=== PATIENT | male | born 1980 | race African-American/Black ===

== ENCOUNTER 2016-11-08 18:15 | Emergency (ER) | payer OTHER ==
[2016-11-08 18:33] VITALS: BP 142/88; PULSE 72; TEMP 98.1; BMI 32.5
[2016-11-08] MEDS ORDERED: predniSONE 20 MG TABLET (UD) PO ONE (18:37)
[2016-11-08] MEDS ORDERED: ALBUTEROL SO4 0.083% IH SOL 2.5 MG/3 ML VIAL.NEB. NEB ONE (18:37)
[2016-11-08] MEDS ORDERED: IPRATROPIUM BR 0.02% 0.5 MG/2.5 ML VIAL.NEB. NEB ONE (18:37)
--- NOTE | 2016-11-08 18:43 | PDOC ---
History of Present Illness - History of Present Illness Initial Comments: 11/08/16 19:35 The patient is a 36 year old male with history of asthma brought in by EMS for dull achy midsternal chest pain that began around noon today. He states he had been feeling in his usual state of health until noon today when he was eating lunch around the onset of his pain. He went home and rested with improvement of his pain. His became concerned and activated EMS. By the time EMS arrived his chest pain had resolved. The patient was noted to be hypertensive to approximately 170/110 by EMS and was given nitroglycerin for his blood pressure prior to ED arrival. The patient denies nausea, vomiting, or diaphoresis. He denies fever, chills, or recent illness. His states he has been using his Ventolin/Singulair more frequently lately but has continued to be wheezy at night. He states he recently ran out of his asthma medication. <Oliva Lorenzana - Last Filed: 11/08/16 21:39> - General History Source: Patient, Spouse Exam Limitations: No Limitations <Idris Whitaker - Last Filed: 11/08/16 23:53> - General Chief Complaint: Chest Pain Stated Complaint: CHEST PAIN Time Seen by Provider: 11/08/16 18:27 Past History <Oliva Lorenzana - Last Filed: 11/08/16 21:39> - Past Medical History Asthma: Yes - Psycho/Social/Smoking Cessation Hx Anxiety: No Suicidal Ideation: No Smoking History: Never smoked Have you smoked in the past 12 months: No Information on smoking cessation initiated: No Hx Alcohol Use: No Drug/Substance Use Hx: No Substance Use Type: None <Idris Whitaker - Last Filed: 11/08/16 23:53> - Past Medical History Allergies/Adverse Reactions: Allergies Allergy/AdvReac Type Severity Reaction Status Date / Time avocado Allergy Verified 11/08/16 20:51 shellfish derived Allergy Verified 11/08/16 20:51 Home Medications: Ambulatory Orders Albuterol Sulfate Inhaler - [Ventolin HFA Inhaler -] 1 - 2 inh PO Q4H PRN #1 inhaler 11/08/16 Albuterol Sulfate Inhaler - [Ventolin HFA Inhaler -] 90 mcg IH PRN 11/08/16 Montelukast Na [Singulair -] 10 mg PO HS 11/08/16 Prednisone [Deltasone -] 60 mg PO DAILY #12 tablet 11/08/16 Review of Systems - Review of Systems Able to Perform ROS?: Yes Comments:: 11/08/16 19:41 GENERAL/CONSTITUTIONAL: No fever or chills. No weakness. HEAD, EYES, EARS, NOSE AND THROAT: No change in vision. No ear pain or discharge. No sore throat CARDIOVASCULAR: +Chest pain (now resolved) RESPIRATORY: +Increased wheezing x past few weeks. No cough, or hemoptysis. GASTROINTESTINAL: No nausea, vomiting, diarrhea or constipation. GENITOURINARY: No dysuria, frequency, or change in urination. MUSCULOSKELETAL: No joint or muscle swelling or pain. No neck or back pain. SKIN: No rash NEUROLOGIC: No headache, vertigo, loss of consciousness, or change in strength/ sensation. ENDOCRINE: No increased thirst. No abnormal weight change. HEMATOLOGIC/LYMPHATIC: No anemia, easy bleeding, or history of blood clots. ALLERGIC/IMMUNOLOGIC: No hives or skin allergy. <Oliva Lorenzana - Last Filed: 11/08/16 21:39> *Physical Exam - Vital Signs Last Vital Signs Temp Pulse Resp BP Pulse Ox 98.1 F 72 18 142/88 100 11/08/16 18:15 11/08/16 18:15 11/08/16 18:15 11/08/16 18:15 11/08/16 18:15 - Physical Exam Comments: 11/08/16 19:43 GENERAL: Awake, alert, and fully oriented, in no acute distress HEAD: No signs of trauma EYES: PERRLA, EOMI, sclera anicteric, conjunctiva clear ENT: Auricles normal inspection, hearing grossly normal, nares patent, oropharynx clear without exudates. Moist mucosa NECK: Normal ROM, supple, no lymphadenopathy, JVD, or masses LUNGS: Breath sounds equal. Mild diffuse expiratory wheezing. HEART: Regular rate and rhythm, normal S1 and S2, no murmurs, rubs or gallops ABDOMEN: Soft, nontender, normoactive bowel sounds. No guarding, no rebound. No masses EXTREMITIES: Normal range of motion, no edema. No clubbing or cyanosis. No cords, erythema, or tenderness NEUROLOGICAL: Cranial nerves II through XII grossly intact. Normal speech, normal gait SKIN: Warm, Dry, normal turgor, no rashes or lesions noted. <Oliva Lorenzana - Last Filed: 11/08/16 21:39> - Vital Signs Last Vital Signs Temp Pulse Resp BP Pulse Ox 98.1 F 72 18 142/88 100 11/08/16 18:15 11/08/16 18:15 11/08/16 18:15 11/08/16 18:15 11/08/16 18:15 <Idris Whitaker - Last Filed: 11/08/16 23:53> Heart Score/ECG Review - History History: Moderately suspicious - Electrocardiogram EKG: Normal - Age Age: </= 45 - Risk Factors Based on the list above the patient has:: No risk factors known - Troponin Troponin: </= normal limit - Score Heart Score - Total: 1 #1 ECG reviewed & interpreted by me at: 18:30 11/08/16 18:39 NSR, incomplete RBBB, no std/julieta, normal axis, normal intervals, QTC 399 msec <Idris Whitaker - Last Filed: 11/08/16 23:53> ED Treatment Course - LABORATORY CBC & Chemistry Diagram: 11/08/16 18:52 11/08/16 18:52 - ADDITIONAL ORDERS Additional order review: 11/08/16 18:52 RBC 5.45 MCV 78.9 L MCHC 32.9 RDW 14.1 MPV 7.5 Neutrophils % 49.6 Lymphocytes % 28.7 Monocytes % 12.7 H Eosinophils % 8.1 H Basophils % 0.9 <Oliva Lorenzana - Last Filed: 11/08/16 21:39> - LABORATORY CBC & Chemistry Diagram: 11/08/16 18:52 11/08/16 18:52 - RADIOLOGY Radiology Studies Ordered: Category Date Time Status CHEST X-RAY PORTABLE* [RAD] Stat Radiology 11/08/16 18:37 Ordered <Idris Whitaker - Last Filed: 11/08/16 23:53> Medical Decision Making - Medical Decision Making 11/08/16 18:39 A portion of this note was documented by scribe services under my direction. I have reviewed the details of the note, within reason, and agree with the documentation with the following case summary and management plan written by me. Patient treated in the ED. Nursing notes are reviewed and incorporated into the medical decision-making. Vital signs reviewed. Peripheral IV access obtained by the nurse, laboratory studies are drawn and sent, reviewed and interpreted by myself. Vital Signs Temp Pulse Resp BP Pulse Ox 98.1 F 72 18 142/88 100 11/08/16 18:15 11/08/16 18:15 11/08/16 18:15 11/08/16 18:15 11/08/16 18:15 36-year-old male with past medical history of asthma presents with dull chest pain today. Patient reports waking up today in his usual state of health. He was eating lunch at 12 when he noticed a dull chest sensation that lasted for several minutes. No associated short of breath, nausea, vomiting, diaphoresis. Denies radiation. Stated the pain went away on its own. Around 3:30, patient started feel the same sensation and arrived home with the pain. called 911 but the chest pain disappeared. Patient denies any family history of cardiac disease and denies smoking history. notes that lately in the last several months, the patient has been wheezing at night and wheezing during the daytime despite taking albuterol positive. Patient is ran out of his medications. We'll rule out SD. Patient does have an incomplete right bundle branch block which could be normal variant but we'll send a d-dimer. EMS had given the patient 324 mg of aspirin and one tablet of nitroglycerin. The patient no chest pain when he received the nitroglycerin so cannot tell us if symptoms improved or worsened. We'll send at least two troponins and reassess. 11/08/16 23:47 CBC, BMP 11/08/16 18:52 11/08/16 18:52 CMP Sodium 141 mmol/L (136-145) 11/08/16 18:52 Potassium 4.2 mmol/L (3.5-5.1) 11/08/16 18:52 Chloride 106 mmol/L (98-107) 11/08/16 18:52 Carbon Dioxide 29 mmol/L (21-32) 11/08/16 18:52 Anion Gap 6 (8-16) L 11/08/16 18:52 BUN 15 mg/dL (7-18) 11/08/16 18:52 Creatinine 0.9 mg/dL (0.7-1.3) 11/08/16 18:52 Creat Clearance w eGFR > 60 (>60) 11/08/16 18:52 Random Glucose 90 mg/dL (74-106) 11/08/16 18:52 Calcium 8.9 mg/dL (8.5-10.1) 11/08/16 18:52 Total Bilirubin 0.5 mg/dL (0.2-1.0) 11/08/16 18:52 AST 31 U/L (15-37) 11/08/16 18:52 ALT 40 U/L (12-78) 11/08/16 18:52 Alkaline Phosphatase 80 U/L (45-117) 11/08/16 18:52 Creatine Kinase 596 IU/L (39-308) H 11/08/16 22:22 Creatine Kinase Index 0.7 % (0.0-5.0) 11/08/16 18:52 CK-MB (CK-2) 5.171 ng/ml (0.5-3.6) H 11/08/16 18:52 CK-MB (CK-2) Rel Index Cancelled 11/08/16 18:52 Troponin I < 0.02 ng/ml (0.00-0.05) 11/08/16 22:22 Total Protein 7.5 g/dl (6.4-8.2) 11/08/16 18:52 Albumin 3.9 g/dl (3.4-5.0) 11/08/16 18:52 Two troponin negative. D-dimer negative. The patient reports feeling better after nebulizers and steroids. Perhaps the dull chest discomfort was secondary to his asthma. However, I have less suspicion that this is cardiac. We'll give referral to a PMD and a cardiology. We'll write a prescription for albuterol and prednisone. Patient agrees with plan. I discussed the physical exam findings, ancillary test results and final diagnoses with the patient. I answered all of the patient's questions. The patient was satisfied with the care received and felt comfortable with the discharge plan and treatment plan. The patient will call their primary care physician within 24 hours to arrange follow-up and will return to the Emergency Department with any new, persistant or worsening symptoms. 11/08/16 23:53 Chest xray reviewed by me, pending official radiology read. no acute findings. <Idris Whitaker - Last Filed: 11/08/16 23:53> *DC/Admit/Observation/Transfer - Attestations Scribe Attestion: 11/08/16 19:44 Documentation prepared by Oliva Lorenzana, acting as medical technologist blood bank for Idris Whitaker MD. <Oliva Lorenzana - Last Filed: 11/08/16 21:39> - Discharge Dispostion Admit: No <Idris Whitaker - Last Filed: 11/08/16 23:53> Diagnosis at time of Disposition: Atypical chest pain Asthma Qualifiers: Asthma severity: unspecified severity Asthma complication type: with acute exacerbation Qualified Code(s): J45.901 - Unspecified asthma with (acute) exacerbation - Discharge Dispostion Disposition: HOME Condition at time of disposition: Improved - Prescriptions Prescriptions: Prednisone [Deltasone -] 60 mg PO DAILY #12 tablet Albuterol Sulfate Inhaler - [Ventolin HFA Inhaler -] 1 - 2 inh PO Q4H PRN #1 inhaler PRN Reason: Wheezing - Referrals Referrals: Jordy Villagomez MD [Staff Physician] - Gabi Faust MD [Staff Physician] - Maral Bruce MD [Staff Physician] - Dread Colby MD [Staff Physician] - - Patient Instructions Printed Discharge Instructions: DI for Atypical Chest Pain, DI for Asthma -- Adult Additional Instructions: Please make an appointment with her primary care physician and cardiology. Take 2 possible albuterol every 4 hours as needed for wheezing. Please continue taking steroids. Please give a copy results to your doctors.
[2016-11-08 19:06] LABS: BASOPHIL 0.9 % (0-2.0); EOSINOPHIL 8.1 % (0-4.5); MCHC 32.9 g/dl (32.0-35.9); MEAN CELL VOLUME 78.9 fl (80-96); MEAN PLT VOLUME 7.5 fl (7.5-11.1); NEUTROPHILS 49.6 % (42.8-82.8); PLATELET COUNT 245 K/MM3 (134-434); RDW 14.1 % (11.9-15.9); WHITE BLOOD COUNT 5.5 K/mm3 (4.0-10.0)
[2016-11-08 19:19] LABS: INR 1.09 (0.82-1.09)
[2016-11-08 19:22] LABS: ACTIVATED PTT 35.7 SECONDS (26.9-34.4)
[2016-11-08 19:32] LABS: ALBUMIN 3.9 g/dl (3.4-5.0); ANION GAP 6 (8-16); BILIRUBIN,TOTAL 0.5 mg/dL (0.2-1.0); CALCIUM 8.9 mg/dL (8.5-10.1); CO2 29 mmol/L (21-32); CREATININE 0.9 mg/dL (0.7-1.3); GLUCOSE,RANDOM 90 mg/dL (74-106); SGOT/AST 31 U/L (15-37); SGPT/ALT 40 U/L (12-78); TOT PROT 7.5 g/dl (6.4-8.2)
[2016-11-08 19:35] LABS: ALK PHOS 80 U/L (45-117); TROPONIN I < 0.02 ng/ml (0.00-0.05)
[2016-11-08] MEDS ORDERED: predniSONE 20 MG TABLET (UD) ONE (20:20)
[2016-11-08 21:18] LABS: INR 1.1 (0.82-1.09); PROTHROMBIN TIME (PATIENT) 12.1 SEC (9.98-11.88)
[2016-11-08 21:21] LABS: ACTIVATED PTT 40.4 SECONDS (26.9-34.4)
[2016-11-08 23:28] LABS: TROPONIN I < 0.02 ng/ml (0.00-0.05)
--- NOTE | 2016-11-09 18:26 | EKG ---
Test Reason : Blood Pressure : / mmHG Vent. Rate : 071 BPM Atrial Rate : 071 BPM P-R Int : 170 ms QRS Dur : 106 ms QT Int : 368 ms P-R-T Axes : 060 000 045 degrees QTc Int : 399 ms NORMAL SINUS RHYTHM INCOMPLETE RIGHT BUNDLE BRANCH BLOCK BORDERLINE ECG NO PREVIOUS ECGS AVAILABLE BASELINE ARTIFACT Confirmed by HUY BLANCO, LUCY ([id number]) on 11/09/2016 6:26:17 PM Referred By: Confirmed By:LUCY SON MD
== END 2016-11-08 23:58 | disposition home or self-care (01) ==
LOC: JER 18:15
PROC: 3E0F7GC Introduction of Other Therapeutic Substance into Respiratory Tract, Via Natural or Artificial Opening (ICD-10-PCS; principal; 2016-11-08)
PROC: 3E0F7GC Introduction of Other Therapeutic Substance into Respiratory Tract, Via Natural or Artificial Opening (ICD-10-PCS; 2016-11-08)
DX: R07.89 Other chest pain (principal); J45.901 Unspecified asthma with (acute) exacerbation
CPT/HCPCS: 36415; 71010-TC; 80053; 82550; 82553; 84484; 85025; 85379; 85610; 85730; 93005; 93010; 94640; 99284-25